=== PATIENT | male | born 1975 | race Caucasian/White ===

== ENCOUNTER 2017-04-27 03:00 | Emergency (ER) | payer OTHER ==
[~2017-04-27] VITALS: Ht 182.9 cm; Wt 60.0 kg
[2017-04-27] MEDS ORDERED: MORPHINE SULFATE 4 MG/ML, 1ML IVPush PRN (03:30)
[2017-04-27] MEDS ORDERED: ONDANSETRON 2MG/ML, 2ML IVPush ONE (03:30)
[2017-04-27] MEDS ORDERED: SODIUM CHLORIDE 0.9% 1,000ML IVBOLUS ONE (03:30)
[2017-04-27] MEDS ORDERED: morphine SULFATE 10 MG/ML, 1ML ONE (03:36)
[2017-04-27] MEDS ORDERED: ONDANSETRON 2MG/ML, 2ML ONE (03:36)
[2017-04-27 04:04] LABS: HEMATOCRIT 41.4 % (39.2-51.8); HEMOGLOBIN 14.1 g/dL (13.7-18.0); WHITE BLOOD COUNT 9.9 x10^3/uL (3.4-10)
[2017-04-27 04:17] LABS: ASPARTATE AMINO TRANSFERASE 15 U/L (15-37); BLOOD UREA NITROGEN 24 mg/dL (7-18)
[2017-04-27] MEDS ORDERED: morphine SULFATE 10 MG/ML, 1ML IVPush PRN (04:30)
[2017-04-27] MEDS ORDERED: OMNIPAQUE 350 MG/ML, 100ML BOTTLE ONE (04:45)
[2017-04-27 06:07] VITALS: BP 142/84
== END 2017-04-27 06:11 | disposition home or self-care (01) ==
LOC: ED 03:38
DX: N13.2 Hydronephrosis with renal and ureteral calculous obstruction (principal)
CPT/HCPCS: 36415; 74177; 80053; 83690; 85025; 96361; 96374; 96375; 99285; J2405; J7030; Q9967